=== PATIENT | male | born 1965 | race Hispanic/Latino ===

== ENCOUNTER 2017-03-30 20:33 | Emergency (ER) | payer OTHER ==
[~2017-03-30] VITALS: Ht 172.7 cm; Wt 122.5 kg
[2017-03-30 22:41] VITALS: BP 152/78
[2017-03-30] MEDS ORDERED: KEFLEX500 M1 PO (23:11)
--- NOTE | 2017-03-30 23:11 | ED SKIN/ALLERGY COMPLAINT ---
History of Present Illness General Chief Complaint: Skin Rash/ Abcess Stated Complaint: PT HAS A ABSCESS IN HIS PRIVATE AREA Source: patient, old records Exam Limitations: no limitations Vital Signs & Intake/Output Vital Signs & Intake/Output Vital Signs Date Time Temp Pulse Resp B/P B/P Pulse O2 O2 Flow FiO2 Mean Ox Delivery Rate 03/30 2241 97.0 76 18 152/78 97 Room Air 03/30 2101 98.9 83 18 179/96 95 Room Air Allergies Coded Allergies: No Known Allergies (03/30/17) Reconcile Medications Cephalexin (Keflex) 500 MG CAPSULE 1 CAP PO TID abscess Triage Note: TRIAGE: PT TO ER C/C ?ABSCESS TO L GROIN AREA. ONSET THIS AFTERNOON. TOOK ADVIL FOR PAIN. Triage Nurses Notes Reviewed? yes Onset: 2 days Duration: day(s):, constant, continues in ED, getting worse Timing: recent history Severity: moderate Location: genitalia Possible Factors: shaving No Modifying Factors: none Associated Symptoms: change in skin texture, rash, swelling/mass/lumps HPI: 2 days prior to admission patient with shaving his genital area and developed abscess to the left inguinal area with redness to the left upper leg. He denies fever chills nausea vomiting diarrhea abdominal pain chest pain shortness breath headache dysuria bleeding. Past History Travel History Traveled to [place] past 21 day No Medical History Any Pertinent Medical History? none Neurological: NONE EENT: NONE Cardiovascular: NONE Respiratory: NONE Gastrointestinal: NONE Hepatic: NONE Renal: NONE Musculoskeletal: NONE Psychiatric: NONE Endocrine: NONE Blood Disorders: NONE Cancer(s): NONE BULK PICKER/Reproductive: NONE Surgical History Surgical History: non-contributory Psychosocial History What is your primary language [place] Citizen Tobacco Use: Never used ETOH Use: occasional use Illicit Drug Use: denies illicit drug use Family History Hx Contributory? No Review of Systems Review of Systems Constitutional: Reports: no symptoms. EENTM: Reports: no symptoms. Respiratory: Reports: no symptoms. Cardiovascular: Reports: no symptoms. GI: Reports: no symptoms. Genitourinary: Reports: no symptoms. Musculoskeletal: Reports: no symptoms. Skin: Reports: see HPI, rash. Neurological/Psychological: Reports: no symptoms. Hematologic/Endocrine: Reports: no symptoms. Immunologic/Allergic: Reports: no symptoms. All Other Systems: Reviewed and Negative Physical Exam Physical Exam General Appearance: well developed/nourished, alert, awake, anxious, mild distress, obese Head: atraumatic Eyes: Bilateral: PERRL, EOMI. Ears, Nose, Throat: normal pharynx, normal ENT inspection, hearing grossly normal Neck: normal inspection, supple Respiratory: normal breath sounds Cardiovascular: regular rate/rhythm Gastrointestinal: soft, non-tender Back: normal inspection, normal range of motion Extremities: normal inspection, normal range of motion, no edema Neurologic/Psych: awake, alert, oriented x 3, normal mood/affect Reflexes: 2+: bicep (R), bicep (L). Skin: rash Skin Problem Location: left suprapubic/inguinal with cellulitis extending to left upper thigh Skin Problem Character: abcess, erythema, swelling, tenderness, thickening, warm Lymphatic: no anterior cervical nata Diagram Body: 1) abscess 3x6 cm with cellulitis to left upper leg Progress Differential Diagnosis: abscess/cellulitis, contact dermatitis Plan of Care: Current Medications Sig/Mia Start time Last Medication Dose Stop Time Status Admin Cephalexin 500 MG ONCE ONE 03/30 2315 UNVr (Keflex) 03/30 2316 Departure Departure Time of Disposition: 2309 Disposition: HOME OR SELF CARE Condition: Stable Clinical Impression Primary Impression: Abscess of suprapubic region Secondary Impressions: Cellulitis and abscess of unspecified site Referrals: NEETA THOMPSON,SANDRA Lanza Call for surgical follow up Departure Forms: Customer Survey General Discharge Information Prescriptions: Current Visit Scripts Cephalexin (Keflex) 1 CAP PO TID #30 CAP Procedures Incision and Drainage Site: L suprapubic/inguinal Blade Size: 10 I & D Procedure: Yes: betadine prep, sterile drapes applied, sterile dressing applied, wick placed. Progress: no purulent drainage
== END 2017-03-30 23:22 ==
LOC: ERH 20:33
DX: L02.214 Cutaneous abscess of groin (principal); L03.116 Cellulitis of left lower limb

== ENCOUNTER 2017-04-01 18:10 | Emergency (ER) | payer OTHER ==
[~2017-04-01 18:10] MED LIST: KEFLEX500 M1 PO
[2017-04-01 18:24] VITALS: BP 163/84
[2017-04-01] MEDS ORDERED: BACTRIM DS TAB1 EACH PO (19:22)
--- NOTE | 2017-04-01 19:23 | ED SKIN/ALLERGY COMPLAINT ---
History of Present Illness General Chief Complaint: Suture Removal/Wound Recheck Stated Complaint: WOUND CHECK Source: patient Exam Limitations: no limitations Vital Signs & Intake/Output Vital Signs & Intake/Output Vital Signs Date Time Temp Pulse Resp B/P B/P Pulse O2 O2 Flow FiO2 Mean Ox Delivery Rate 04/01 1824 97.9 67 18 163/84 97 Room Air Allergies Coded Allergies: No Known Allergies (03/30/17) Reconcile Medications Cephalexin (Keflex) 500 MG CAPSULE 1 CAP PO TID abscess Sulfamethoxazole/Trimethoprim (Bactrim Ds Tablet) 800 MG-160 MG TABLET 1 TAB PO BID ABSCESS/CELLULITIS Triage Note: PT TO TRIAGE FOR WICK REMOVAL THAT WAS PLACED HERE IN ER 2 DAYS AGO (LEFT GROIN AREA). Triage Nurses Notes Reviewed? yes Onset: Abrupt Duration: day(s):, constant, continues in ED Timing: recent history No Modifying Factors: none HPI: 49-year-old male comes into emergency room for an abscess recheck to the left groin. Patient was seen here yesterday and had an I&D done. Denies any fever or chills. Persistent swelling still. Patient currently taking Keflex. Denies any other associated symptoms. Past History Travel History Traveled to [place] past 21 day No Medical History Any Pertinent Medical History? 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 No Review of Systems Review of Systems Constitutional: Reports: no symptoms. EENTM: Reports: no symptoms. Respiratory: Reports: no symptoms. Cardiovascular: Reports: no symptoms. GI: Reports: no symptoms. Genitourinary: Reports: no symptoms. Musculoskeletal: Reports: no symptoms. Skin: Reports: see HPI. Neurological/Psychological: Reports: no symptoms. Hematologic/Endocrine: Reports: no symptoms. Immunologic/Allergic: Reports: no symptoms. All Other Systems: Reviewed and Negative Physical Exam Physical Exam General Appearance: well developed/nourished, mild distress Head: atraumatic Eyes: Bilateral: normal appearance. Ears, Nose, Throat: normal ENT inspection, hearing grossly normal Neck: normal inspection Respiratory: no respiratory distress Back: normal inspection Extremities: normal inspection, normal range of motion, no edema Neurologic/Psych: awake, alert, oriented x 3, normal mood/affect Skin: intact, rash Skin Problem Location: left groin Skin Problem Character: abscess left groin, patient has induration, half centimeter incision site from previous abscess drainage, no warmth, no erythema, approximately 4 inches of induration, Lymphatic: no anterior cervical nata Progress Differential Diagnosis: abscess/cellulitis, allergic reaction, angioedema, contact dermatitis, drug reaction Plan of Care: Orders Procedure Date/time Status TRUNK AREA CULTURE 04/01 1938 Active Microbiology 04/01 1938 TRUNK: Culture & Sensitivity - RECD 04/01 1938 TRUNK: Gram Stain - RECD Departure Departure Disposition: HOME OR SELF CARE Condition: Stable Clinical Impression Primary Impression: Abscess of groin, left Referrals: PATIENT HAS NO PRIMARY CARE DR (PCP/Family) MICKIE THOMPSON,ELOY Davey Additional Instructions: Take Bactrim in conjunction with Keflex. Warm soaks such as sitz bath or hot compresses to groin. Follow-up with general surgeon provided. Return if any concerns worsening symptoms. Please go over all results of today's visit with your primary care doctor. Contact your primary care doctor to let them know you were here in the emergency room. There may be nonspecific findings which may not be related to your visit today here in the emergency room but may require further evaluation and chronic monitoring by your primary care doctor. If you had a laceration today the chance of foreign body always remains. You should follow-up with your primary care doctor for recheck in 3-5 days for a wound check. If you had an x-ray done there is a chance that a fracture could have been missed on initial read and you should follow-up with your primary care doctor for repeat x-rays if symptoms persist. If your blood pressure was elevated here in the emergency room please have rechecked by her primary care doctor within the next 48 hours by your primary care doctor. If you were prescribed a narcotic here in the emergency room or any type of controlled substances you're not allowed to drive while taking this medication or operate any type of heavy machinery. Narcotics can make you feel lightheaded dizziness nausea and can cause constipation. 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 Thank you for choosing [facility] emergency room. Please return to the emergency room immediately if you have any other concerns worsening of symptoms. Departure Forms: Customer Survey General Discharge Information Prescriptions: Current Visit Scripts Sulfamethoxazole/Trimethoprim (Bactrim Ds Tablet) 1 TAB PO BID #20 TAB Comments another I&D was performed. No discharge on exam. Susan clamp used to break up adhesions. Culture obtained. Patient started on Bactrim to take in conjunction with Keflex. Patient was referred to general surgeon to follow-up with next week and instructed to do sitzs baths and warm compresses. Clinically looks well otherwise. In no apparent distress. Procedures Incision and Drainage Site: left groin Blade Size: 15 I & D Procedure: Yes: betadine prep, sterile drapes applied, sterile dressing applied. Progress: 2% lidocaine with epi, 5 mL injected, Susan clamp used to further breakup adhesions, incision site increased,
== END 2017-04-01 19:40 ==
LOC: ERH 18:10
DX: L02.214 Cutaneous abscess of groin (principal)
CPT/HCPCS: 87184; 87070; 87147